=== PATIENT | female | born 1955 | race Two or more races ===

== ENCOUNTER → 2016-11-08 | Emergency (ER) | payer SELFPAY | LOC: ED 10:37 → EDBD 10:37 | DX: S63.641A Sprain of metacarpophalangeal joint of right thumb, initial encounter (principal); X58.XXXA Exposure to other specified factors, initial encounter; Y93.89 Activity, other specified; Y92.009 Unspecified place in unspecified non-institutional (private) residence as the place of occurrence of the external cause; Y99.8 Other external cause status | CPT/HCPCS: 99283 ==

== ENCOUNTER 2018-03-25 16:46 | Emergency (ER) | payer OTHER ==
[~2018-03-25] VITALS: Ht 149.9 cm; Wt 73.5 kg
[2018-03-25 17:04] VITALS: BP 147/87
[2018-03-25 18:23] LABS: BASOPHILS # (AUTO) 0.01 x10^3/uL (0-0.1); BASOPHILS % (AUTO) 0 % (0-1); EOSINOPHILS # (AUTO) 0.13 x10^3/uL (0-0.4); EOSINOPHILS % (AUTO) 2 % (1-7); LYMPHOCYTES % (AUTO) 27 % (22-44); MD NO; MEAN CORPUSCULAR VOLUME 88.5 fL (80-100); MEAN PLATELET VOLUME 9.6 fL (7.4-10.4); MONOCYTES # (AUTO) 0.39 x10^3/uL (0.2-0.8); MONOCYTES % (AUTO) 7 % (2-9); NEUTROPHILS # (AUTO) 3.55 x10^3/uL (1.8-6.8); NEUTROPHILS % (AUTO) 64 % (42-75); PLATELET COUNT 224 x10^3/uL (130-400); RED BLOOD COUNT 5.15 x10^6/uL (3.82-5.3)
[2018-03-25 18:25] LABS: ALBUMIN 3.9 g/dL (3.4-5.0); ANION GAP 7 mmol/L (5-15); CALCIUM 8.9 mg/dL (8.5-10.1); CHLORIDE 108 mmol/L (98-107); CREATININE 0.85 mg/dL (0.55-1.02)
[2018-03-25] MEDS ORDERED: ACETAMINOPHEN 500 MG TABLET PO ONE (18:30)
[2018-03-25] MEDS ORDERED: ACETAMINOPHEN 500 MG TABLET ONE (18:31)
[2018-03-25 18:48] LABS: MICROSCOPIC INDICATED
[2018-03-25 18:49] LABS: CULTURE INDICATED? YES
[2018-03-25 18:59] LABS: RAPID INFLUENZA A Negative (Negative); RAPID INFLUENZA B Negative (Negative)
== END 2018-03-25 20:57 | disposition home or self-care (01) ==
LOC: ED 18:41
DX: N30.00 Acute cystitis without hematuria (principal); M79.10 Myalgia, unspecified site
CPT/HCPCS: 36415; 80048; 81001; 82040; 85025; 87077; 87086; 87147; 87400; 99284

== ENCOUNTER 2019-05-06 06:42 | Emergency (ER) ==
[~2019-05-06] VITALS: Ht 162.6 cm; Wt 65.0 kg
--- NOTE | 2019-05-06 07:03 | NUR ---
ABD PAIN ON THE LEFT LOWER QUADRANT THAT STARTED ALL AT ONCE AT 0300 THIS MORNING. PT WAS EATING AT 0100 AND STARTED HAVEING NAUSEA.
[2019-05-06] MEDS ORDERED: DIPHENHYDRAMINE 50 MG/ML, 1ML ONE (07:13)
[2019-05-06] MEDS ORDERED: ONDANSETRON 2MG/ML, 2ML ONE (07:13)
[2019-05-06] MEDS ORDERED: MORPHINE SULFATE 4 MG/ML, 1ML ONE (07:13)
[2019-05-06 07:21] LABS: BASOPHILS # (AUTO) 0.03 x10^3/uL (0-0.1); BASOPHILS % (AUTO) 0 % (0-1); EOSINOPHILS # (AUTO) 0.08 x10^3/uL (0-0.4); EOSINOPHILS % (AUTO) 1 % (1-7); LYMPHOCYTES # (AUTO) 1.67 x10^3/uL (1-3.4); LYMPHOCYTES % (AUTO) 14 % (22-44); MD NO; MEAN CORPUSCULAR HEMOGLOBIN 29.7 pg (27.0-34.8); MEAN CORPUSCULAR HGB CONC 33.7 g/dL (32.4-35.8); MEAN CORPUSCULAR VOLUME 88.2 fL (80-100); MEAN PLATELET VOLUME 8.9 fL (7.4-10.4); MONOCYTES # (AUTO) 0.37 x10^3/uL (0.2-0.8); MONOCYTES % (AUTO) 3 % (2-9); NEUTROPHILS # (AUTO) 9.95 x10^3/uL (1.8-6.8); NEUTROPHILS % (AUTO) 82 % (42-75); PLATELET COUNT 246 x10^3/uL (130-400); RED BLOOD COUNT 5.13 x10^6/uL (3.82-5.3); RED CELL DISTRIBUTION WIDTH 12.4 % (9.6-15.2)
--- NOTE | 2019-05-06 07:24 | NUR ---
REPORT TO [facility]
--- NOTE | 2019-05-06 07:24 | NUR ---
PIV PLACED AND PT MEDICATED FOR PAIN PER EMAR. PT REFUSED STRIGHT CATH FOR URINE.
[2019-05-06] MEDS ORDERED: ONDANSETRON 2MG/ML, 2ML IVPush ONE (07:30)
[2019-05-06] MEDS ORDERED: DIPHENHYDRAMINE 50 MG/ML, 1ML IVPush ONE (07:30)
[2019-05-06] MEDS ORDERED: MORPHINE SULFATE 4 MG/ML, 1ML IVPush PRN (07:30)
[2019-05-06] MEDS ORDERED: SODIUM CHLORIDE FLUSH 10ML SYR IVF ONE (07:30)
[2019-05-06 07:34] LABS: ALBUMIN 3.8 g/dL (3.4-5.0); ANION GAP 6 mmol/L (5-15); CALCIUM 9.3 mg/dL (8.5-10.1); CHLORIDE 106 mmol/L (98-107)
[2019-05-06 07:56] LABS: ALANINE AMINOTRANSFERASE 40 U/L (12-78)
[2019-05-06 07:58] LABS: ALKALINE PHOSPHATASE 97 U/L (45-117); BILIRUBIN,TOTAL 0.3 mg/dL (0.2-1.0); TOTAL PROTEIN 7.5 g/dL (6.4-8.2)
--- NOTE | 2019-05-06 08:18 | NUR ---
REPORT FROM [facility].
[2019-05-06 08:36] VITALS: BP 124/62
[2019-05-06] MEDS ORDERED: OMNIPAQUE 350 MG/ML, 100ML BOTTLE ONE (08:36)
--- NOTE | 2019-05-06 08:37 | NUR ---
PT RETURNED FROM CT AT THIS TIME, DENIES ANY NEEDS OR CONCERNS. STATES THAT PAIN IS IMPROVED AFTER MEDICATION TO A 08/12. CALL LIGHT IN REACH.
[2019-05-06 08:52] LABS: MICROSCOPIC AUTO
[2019-05-06 08:53] LABS: CULTURE INDICATED? YES
== END 2019-05-06 10:48 | disposition home or self-care (01) ==
LOC: ED 09:42
DX: K57.32 Diverticulitis of large intestine without perforation or abscess without bleeding (principal); N83.291 Other ovarian cyst, right side
CPT/HCPCS: 36415; 74177; 76856; 80053; 81001; 83690; 85025; 87086; 96374; 96375; 99284; J1200; J2270; J2405; Q9967

== ENCOUNTER 2020-04-16 17:46 | Inpatient (IN) | payer OTHER ==
[~2020-04-16] VITALS: Ht 160 cm; Wt 73.5 kg
[2020-04-16 18:34] LABS: BASOPHILS % (AUTO) 0 % (0-1); EOSINOPHILS % (AUTO) 0 % (1-7); LYMPHOCYTES % (AUTO) 11 % (22-44); MEAN CORPUSCULAR HEMOGLOBIN 28.6 pg (27.0-34.8); MEAN CORPUSCULAR HGB CONC 33.3 g/dL (32.4-35.8); MEAN PLATELET VOLUME 9.6 fL (7.4-10.4); MONOCYTES % (AUTO) 4 % (2-9); NEUTROPHILS % (AUTO) 85 % (42-75); PLATELET COUNT 154 x10^3/uL (130-400); RED BLOOD COUNT 4.74 x10^6/uL (3.82-5.3); RED CELL DISTRIBUTION WIDTH 13.3 % (9.6-15.2)
[2020-04-16 18:35] LABS: ALBUMIN 3.4 g/dL (3.4-5.0); ANION GAP 4 mmol/L (5-15); CALCIUM 8.4 mg/dL (8.5-10.1); CHLORIDE 107 mmol/L (98-107)
[2020-04-16 18:36] LABS: MD NO
[2020-04-16 18:40] LABS: ALANINE AMINOTRANSFERASE 49 U/L (12-78); ALKALINE PHOSPHATASE 139 U/L (45-117); BILIRUBIN,TOTAL 0.3 mg/dL (0.2-1.0); CREATININE 0.98 mg/dL (0.55-1.02); TOTAL PROTEIN 7.5 g/dL (6.4-8.2)
--- NOTE | 2020-04-16 20:47 | NUR ---
ORNAMENTAL IRON ERECTOR: PT. TO ROOM FORM LOBBY AT THIS TIME.
--- NOTE | 2020-04-16 21:01 | NUR ---
PATIENT WALKED BACK FROM [facility] WITH CHIEF C/O FEVER X1 WEEK, AND BODY ACHES X3 DAYS. PATIENT REPORTS SOB, FEELING WEAK AND LETHARGIC, MÉNDEZ, AND CHILLS. NO SIGNS OF ACUTE DISTRESS, CONNECTED TO VITALS MACHINE, O2 SATURATION ON RA 88%, PLACED PATIENT ON 2 LPM NC NAD O2 SATURATION WENT UP TO 97%. WARM BLANKET PROVIDED, AND CALL LIGHT WITHIN REACH.
--- NOTE | 2020-04-16 21:08 | NUR ---
x-ray tech at bedside.
--- NOTE | 2020-04-16 22:17 | NUR ---
20 GAUGE IV STARTED RIGHT AC, ZITHROMAX HUNG, COVID SWAB COLLECTED AND WALKED TO LAB, NO SIGNS OF ACUTE DISTRESS, CALL LIGHT WITHIN REACH, CONNECTED TO VITALS MACHINE.
[2020-04-16] MEDS ORDERED: ACETAMINOPHEN 500 MG TABLET ONE (22:22)
[2020-04-16] MEDS ORDERED: ACETAMINOPHEN 500 MG TABLET PO ONE (22:30)
[2020-04-16] MEDS ORDERED: AZITHROMYCIN 500 MG in SODIUM CHLORIDE 0.9% 250 ML IV ONE (22:30)
--- NOTE | 2020-04-16 22:38 | NUR ---
REPORT CALLED TO [facility] ON MEDICAL COVID UNIT.
--- NOTE | 2020-04-16 22:56 | NUR ---
PATIENT TRANSFERRED TO MEDICAL COVID UNIT VIA GURNEY IN STABLE CONDITION WITH SUPERVISOR DIE CASTING. ALL PATIENT BELONGINGS GATHERED AND TAKEN WITH PATIENT.
[2020-04-16 23:23] VITALS: BP 109/54
[2020-04-17 00:57] VITALS: BP 115/65
[2020-04-17] MEDS ORDERED: GABAPENTIN 300 MG CAPSULE PO PRN (01:00)
[2020-04-17] MEDS ORDERED: GUAIFENESIN/DM 200-20MG, 10ML UDC PO PRN (01:00)
[2020-04-17] MEDS ORDERED: POTASSIUM CHLORIDE 20 MEQ TAB.ER.PRT PO ONE (01:00)
[2020-04-17] MEDS ORDERED: MELATONIN 5 MG TABLET PO PRN (01:00)
[2020-04-17] MEDS ORDERED: ONDANSETRON ODT 4 MG PO PRN (01:00)
[2020-04-17] MEDS ORDERED: DOCUSATE 100 MG CAPSULE PO PRN (01:00)
[2020-04-17] MEDS ORDERED: LIDODERM 5% PATCH TD PRN (01:00)
[2020-04-17] MEDS: HEPARIN 5,000 UNITS/ML, 1ML SQ SCH ×2 (01:45→12:18)
[2020-04-17] MEDS: CEFTRIAXONE PMX 2GM/50ML 50 ML IVPB SCH (01:45)
[2020-04-17] MEDS: INSULIN LISPRO 100 UNITS/ML, PEN SQ-INSULIN SCH ×4 (07:38→20:00)
[2020-04-17 09:24] VITALS: BP 104/64
[2020-04-17] MEDS ORDERED: ONDANSETRON 2MG/ML, 2ML ONE (12:05)
[2020-04-17] MEDS: CHOLECALCIFEROL (VITAMIN D3) 5000 IU CAP PO SCH (12:17)
[2020-04-17] MEDS: ASCORBIC ACID 500 MG TABLET PO SCH ×2 (12:17→16:57)
[2020-04-17] MEDS: ZINC SULFATE 220 MG CAPSULE PO SCH (12:18)
[2020-04-17 15:30] VITALS: BP 109/66
[2020-04-17] MEDS: DEXAMETHASONE 4 MG/ML, 1ML IVPush SCH (16:58)
[2020-04-17 18:41] VITALS: BP 118/61
[2020-04-17] MEDS: AZITHROMYCIN 500 MG in SODIUM CHLORIDE 0.9% 250 ML IV SCH (19:57)
[2020-04-17] MEDS: ENOXAPARIN 40 MG/0.4 ML SQ SCH (20:01)
[2020-04-18 00:44] VITALS: BP 92/54
[2020-04-18] MEDS: CEFTRIAXONE PMX 2GM/50ML 50 ML IVPB SCH (01:57)
[2020-04-18 05:41] LABS: ANION GAP 7 mmol/L (5-15); CALCIUM 8.3 mg/dL (8.5-10.1); CHLORIDE 108 mmol/L (98-107); CREATININE 0.84 mg/dL (0.55-1.02)
[2020-04-18 06:27] LABS: BASOPHILS % (AUTO) 0 % (0-1); EOSINOPHILS % (AUTO) 0 % (1-7); LYMPHOCYTES % (AUTO) 15 % (22-44); MEAN CORPUSCULAR HEMOGLOBIN 28.4 pg (27.0-34.8); MEAN CORPUSCULAR HGB CONC 32.8 g/dL (32.4-35.8); MEAN PLATELET VOLUME 9.7 fL (7.4-10.4); MONOCYTES % (AUTO) 3 % (2-9); NEUTROPHILS % (AUTO) 82 % (42-75); PLATELET COUNT 174 x10^3/uL (130-400); RED BLOOD COUNT 4.65 x10^6/uL (3.82-5.3); RED CELL DISTRIBUTION WIDTH 13.2 % (9.6-15.2)
[2020-04-18 06:38] LABS: MD NO
[2020-04-18 07:55] VITALS: BP 103/57
[2020-04-18] MEDS: ASCORBIC ACID 500 MG TABLET PO SCH ×2 (08:18→16:55)
[2020-04-18] MEDS: DEXAMETHASONE 4 MG/ML, 1ML IVPush SCH (08:18)
[2020-04-18] MEDS: ZINC SULFATE 220 MG CAPSULE PO SCH (08:18)
[2020-04-18] MEDS: INSULIN LISPRO 100 UNITS/ML, PEN SQ-INSULIN SCH ×4 (08:19→20:07)
[2020-04-18] MEDS: CHOLECALCIFEROL (VITAMIN D3) 5000 IU CAP PO SCH (11:03)
[2020-04-18 14:10] VITALS: BP 118/62
[2020-04-18 19:10] VITALS: BP 123/68
[2020-04-18] MEDS: AZITHROMYCIN 500 MG in SODIUM CHLORIDE 0.9% 250 ML IV SCH (19:56)
[2020-04-18] MEDS: ENOXAPARIN 40 MG/0.4 ML SQ SCH (19:56)
[2020-04-19 00:49] VITALS: BP 120/68
[2020-04-19] MEDS: CEFTRIAXONE PMX 2GM/50ML 50 ML IVPB SCH (03:35)
[2020-04-19 07:54] VITALS: BP 121/68
[2020-04-19] MEDS: CHOLECALCIFEROL (VITAMIN D3) 5000 IU CAP PO SCH (08:20)
[2020-04-19] MEDS: ONDANSETRON 2MG/ML, 2ML IVPush PRN ×2 (08:20→16:13)
[2020-04-19] MEDS: ACETAMINOPHEN 325 MG TABLET PO PRN ×2 (08:20→16:13)
[2020-04-19] MEDS: ZINC SULFATE 220 MG CAPSULE PO SCH (08:20)
[2020-04-19] MEDS: INSULIN LISPRO 100 UNITS/ML, PEN SQ-INSULIN SCH ×4 (08:20→20:10)
[2020-04-19] MEDS: DEXAMETHASONE 4 MG/ML, 1ML IVPush SCH (08:20)
[2020-04-19] MEDS: ASCORBIC ACID 500 MG TABLET PO SCH ×2 (08:20→16:14)
[2020-04-19 14:05] VITALS: BP 117/68
[2020-04-19 19:31] VITALS: BP 142/76
[2020-04-19] MEDS: AZITHROMYCIN 500 MG in SODIUM CHLORIDE 0.9% 250 ML IV SCH (19:39)
[2020-04-19] MEDS: ENOXAPARIN 40 MG/0.4 ML SQ SCH (19:40)
[2020-04-20 00:52] VITALS: BP 120/65
[2020-04-20] MEDS: INSULIN LISPRO 100 UNITS/ML, PEN SQ-INSULIN SCH ×3 (07:00→15:09)
[2020-04-20 07:05] VITALS: BP 152/78
[2020-04-20] MEDS: DEXAMETHASONE 4 MG/ML, 1ML IVPush SCH (07:51)
[2020-04-20] MEDS: CHOLECALCIFEROL (VITAMIN D3) 5000 IU CAP PO SCH (07:51)
[2020-04-20] MEDS: ASCORBIC ACID 500 MG TABLET PO SCH (07:51)
[2020-04-20] MEDS: ZINC SULFATE 220 MG CAPSULE PO SCH (07:51)
[2020-04-20] MEDS ORDERED: CEFD300C37 PO (10:12)
[2020-04-20] MEDS ORDERED: AZIT250T PO (10:12)
[2020-04-20] MEDS ORDERED: ZINC220C7 PO (10:16)
[2020-04-20] MEDS ORDERED: MELA5TAB14 PO (10:16)
[2020-04-20] MEDS ORDERED: ASCO500T9 PO (10:16)
[2020-04-20] MEDS ORDERED: CHOL500051 PO (10:16)
[2020-04-20 12:20] VITALS: BP 136/69
== END 2020-04-20 18:42 | disposition home or self-care (01) | DRG 177 ==
LOC: ED 21:19 → EDIP 22:05 → 3N 22:48
PROVIDERS: ADMIT Family Medicine; ATTEND Family Medicine
DX: U07.1 COVID-19 (principal); J12.89 Other viral pneumonia; J96.01 Acute respiratory failure with hypoxia; E87.6 Hypokalemia; R53.83 Other fatigue; R73.9 Hyperglycemia, unspecified; Z59.0 Homelessness
CPT/HCPCS: 36415; 71045; 80048; 80053; 82728; 82962; 83036; 83615; 85025; G0378; J0456; J0696; J1100; J1644; J1650; J2405; Q0162; J1815; J7050; U0003

== ENCOUNTER 2020-06-13 16:34 | Emergency (ER) | payer SELFPAY ==
[~2020-06-13] VITALS: Ht 160 cm; Wt 70.5 kg
[~2020-06-13 16:34] MED LIST: ASCO500T9 PO; AZIT250T PO; CEFD300C37 PO; CHOL500051 PO; MELA5TAB14 PO; ZINC220C7 PO
[2020-06-13] MEDS ORDERED: SODIUM CHLORIDE FLUSH 10ML SYR IVF ONE (17:00)
[2020-06-13] MEDS ORDERED: MECLIZINE CHEWABLE 25 MG TAB PO ONE (17:00)
[2020-06-13 18:10] LABS: ALBUMIN 3.7 g/dL (3.4-5.0); CALCIUM 8.4 mg/dL (8.5-10.1); CHLORIDE 110 mmol/L (98-107)
[2020-06-13] MEDS ORDERED: MECLIZINE CHEWABLE 25 MG TAB ONE (18:10)
[2020-06-13 18:12] LABS: BASOPHILS % (AUTO) 1 % (0-1); EOSINOPHILS % (AUTO) 1 % (1-7); LYMPHOCYTES % (AUTO) 20 % (22-44); MEAN CORPUSCULAR HEMOGLOBIN 29.3 pg (27.0-34.8); MEAN CORPUSCULAR HGB CONC 33.8 g/dL (32.4-35.8); MEAN PLATELET VOLUME 8.9 fL (7.4-10.4); MONOCYTES % (AUTO) 4 % (2-9); NEUTROPHILS % (AUTO) 74 % (42-75); PLATELET COUNT 211 x10^3/uL (130-400); RED CELL DISTRIBUTION WIDTH 13.7 % (9.6-15.2)
[2020-06-13 18:20] LABS: ANION GAP 4 mmol/L (5-15); MD NO
--- NOTE | 2020-06-13 19:01 | NUR ---
Patient ambulated apporx 50ft, had steady gait denies any dizziness at this time
[2020-06-13 19:10] VITALS: BP 111/54
== END 2020-06-13 19:26 | disposition home or self-care (01) ==
LOC: ED 19:21
DX: R42 Dizziness and giddiness (principal); R51.9 Headache, unspecified; R11.2 Nausea with vomiting, unspecified
CPT/HCPCS: 36415; 70450; 80048; 82040; 85025; 93005; 99285

== ENCOUNTER 2020-11-22 15:11 | Emergency (ER) | payer SELFPAY ==
[~2020-11-22] VITALS: Ht 162.6 cm; Wt 70.4 kg
--- NOTE | 2020-11-22 15:22 | NUR ---
dog boarder: pt drinking fluids in triage, advised to be NPO
[2020-11-22 17:09] VITALS: BP 130/67
== END 2020-11-22 17:13 | disposition home or self-care (01) ==
LOC: ED 16:45
DX: M54.6 Pain in thoracic spine (principal)
CPT/HCPCS: 71045; 99283